=== PATIENT | female | born 2000 | race Caucasian/White ===

== ENCOUNTER 2020-04-29 02:22 | Inpatient (IN) ==
[2020-04-28 23:34] LABS: Bacteria,Urine Few per hpf (None-Few); Bilirubin,Urine Negative (Negative); Blood,Urine Negative (Negative); Clarity,Urine Clear (Clear); Color,Urine Yellow (Yellow); Glucose,Urine (UA) Normal (Normal); Ketones,Urine 40 mg/dL (Negative); Leukocyte Esterase,Urine Small (Negative); Mucus,Urine Few per lpf (None-Few); Nitrite,Urine Negative (Negative); PH,Urine 8.5 pH Units (5.0-8.0); Protein,Urine 70 mg/dL (Neg-Trace); Specific Gravity,Urine 1.023 (1.010-1.025); Squamous Epithelial Cell,Urine Few per hpf (None-Few); Urobilinogen,Urine Normal (Normal)
[~2020-04-29 02:22] MED LIST: Famotidine 20 MG/2 ML VIAL IVP PRN; Metoclopramide 10 MG/2 ML VIAL IVP PRN; Naloxone 0.4 MG/ML INJ IVP PRN; Ringers Solution, Lactated 1,000 ML IVC ONE; cefTRIAXone 1,000 MG in Water for inj. (sterile) 10 ML IVP ONE
[2020-04-29] MEDS ORDERED: Penicillin G Potassium 5,000,000 UNIT in 0.9 % Sodium Chloride Mini Bag 100 ML IVPB ONE (02:39)
[2020-04-29] MEDS: Ringers Solution, Lactated 1,000 ML IVC SCH ×2 (02:54→10:35)
[2020-04-29 03:23] LABS: Basophils % 0.2 %; Eosinophils # 0.1 K/mcL (0.0-0.6); Eosinophils % 0.4 %; Hematocrit 30.8 % (35.3-44.9); Hemoglobin 10.4 g/dL (11.5-15.4); Immature Granulocytes % 0.9 % (0-4); Lymphocytes # 1.7 K/mcL (0.6-4.6); Lymphocytes % 7.9 %; Mean Corpuscular HGB Conc 33.8 g/dL (31.6-35.5); Mean Corpuscular Hemoglobin 31.7 pg (28.0-33.3); Mean Corpuscular Volume 93.9 fL (83.0-100.0); Mean Platelet Volume 12.4 fL (9.4-12.4); Monocytes # 1.7 K/mcL (0.0-1.3); Monocytes % 7.8 %; Neutrophils # 18.1 K/mcL (1.6-8.9); Platelet Count 115 K/mcL (140-400); Red Blood Count 3.28 M/mcL (3.82-4.97); Red Cell Distribution Width 12.3 % (11.5-14.5); Segmented Neutrophils % 82.8 %; White Blood Count 21.8 K/mcL (4.3-11.1)
[2020-04-29] MEDS ORDERED: Ropivacaine/PF 0.2% 20 ML VIAL EP ONE (03:37)
[2020-04-29] MEDS ORDERED: EPHEDrine 50 MG/ML VIAL IVP PRN (03:37)
[2020-04-29] MEDS ORDERED: *HR* FentaNYL (PF) 100 MCG/2 ML VIAL EP ONE (03:37)
[2020-04-29] MEDS ORDERED: *HR* FentaNYL (PF) 100 MCG/2 ML VIAL ONE (03:45)
[2020-04-29] MEDS ORDERED: Betamethasone Acet/SodPhos 30 MG/5 ML VIAL IM SCH (03:45)
[2020-04-29] MEDS ORDERED: Ropivacaine/PF 0.2% 20 ML VIAL ONE ×2 (03:46→15:58)
[2020-04-29] MEDS ORDERED: Epidural Premix (fent/bupiv) 110 ML EP ONE (03:48)
[2020-04-29] MEDS ORDERED: NIFEdipine 10 MG CAPSULE PO ONE (05:16)
[2020-04-29] MEDS: Penicillin G Potassium 2,500,000 UNIT/105 ML MLS IVPB SCH ×3 (07:18→15:04)
[2020-04-29] MEDS ORDERED: Ondansetron 4 MG/2 ML VIAL IVP PRN (07:46)
[2020-04-29] MEDS: NIFEdipine 10 MG CAPSULE PO SCH ×3 (08:50→16:30)
[2020-04-29] MEDS ORDERED: Methylergonovine 0.2 MG/ML AMPUL IM ONE (10:29)
[2020-04-29] MEDS: Epidural Premix (fent/bupiv) 110 ML EP SCH ×2 (10:35→16:29)
[2020-04-29] MEDS ORDERED: *HR* Ropivacaine/PF 0.5% 20 ML VIAL ONE (15:57)
[2020-04-29] MEDS ORDERED: Oxytocin 20 units/ LR 1000 mL 20 UNIT/1,000 ML BAG IVC ONE ×2 (19:10→23:02)
[2020-04-29] MEDS ORDERED: Lidocaine 1% 20 ML MDV ONE (20:03)
[2020-04-29] MEDS ORDERED: Acetaminophen 325 MG TABLET PO PRN (23:02)
[2020-04-29] MEDS ORDERED: Ibuprofen 600 MG TABLET PO PRN (23:02)
[2020-04-29] MEDS ORDERED: Oxytocin 20 units/ LR 1000 mL 20 UNIT/1,000 ML BAG IVC SCH (23:02)
[2020-04-29] MEDS ORDERED: Measles/Mumps/Rubella Vacc 0.5 ML VIAL SQ PRN (23:02)
[2020-04-29] MEDS ORDERED: Rho Immune Globulin 1,500 UNIT SYRINGE IM PRN (23:02)
[2020-04-29] MEDS ORDERED: Benzocaine/Menthol 56 GM AEROSOL SPRAY TP PRN (23:02)
[2020-04-30 07:16] LABS: Basophils # 0.1 K/mcL (0.0-0.2); Basophils % 0.2 %; Hematocrit 26.7 % (35.3-44.9); Hemoglobin 8.8 g/dL (11.5-15.4); Immature Granulocytes % 1.7 % (0-4); Lymphocytes # 1.7 K/mcL (0.6-4.6); Lymphocytes % 7.7 %; Mean Corpuscular Hemoglobin 32.5 pg (28.0-33.3); Mean Corpuscular Volume 98.5 fL (83.0-100.0); Mean Platelet Volume 12.8 fL (9.4-12.4); Monocytes # 1.9 K/mcL (0.0-1.3); Monocytes % 8.4 %; Neutrophils # 17.9 K/mcL (1.6-8.9); Platelet Count 133 K/mcL (140-400); Red Blood Count 2.71 M/mcL (3.82-4.97); Red Cell Distribution Width 12.4 % (11.5-14.5); White Blood Count 21.9 K/mcL (4.3-11.1)
[2020-04-30] MEDS: Prenatal Vit/FA 1 EACH TABLET PO SCH (07:46)
[2020-05-01] MEDS: Prenatal Vit/FA 1 EACH TABLET PO SCH (08:20)
[2020-05-01 08:51] VITALS: BP 98/55
[2020-05-01] MEDS ORDERED: FLU Vac QV 20-21 (6Month+)/PF 0.5 ML SYRINGE IM ONE (09:13)
== END 2020-05-01 10:30 | disposition home or self-care (01) | DRG 560 ==
LOC: 1NENULAB → 1NENUOBS 23:05
PROVIDERS: ADMIT Obstetrics & Gynecology; ATTEND Obstetrics & Gynecology